=== PATIENT | female | born 1985 ===

== ENCOUNTER 2018-01-27 13:19 | Inpatient (IN) | payer OTHER ==
[~2018-01-27] VITALS: Ht 160 cm; Wt 65.3 kg
[~2018-01-27 13:19] MED LIST: DOLOGEN CAPLET1 EACH PO
[2018-01-27] MEDS ORDERED: XARELTO15 MG (13:46)
== END 2018-02-03 18:57 | DRG 176 ==
LOC: ER 13:19 → MEDI 18:01 → SEC-K 18:01 → MEDI 18:49
PROC: 4A033R1 Measurement of Arterial Saturation, Peripheral, Percutaneous Approach (ICD-10-PCS; principal; 2018-01-27)
PROC: BW24YZZ Computerized Tomography (CT Scan) of Chest and Abdomen using Other Contrast (ICD-10-PCS; 2018-01-27)
PROC: B246ZZZ Ultrasonography of Right and Left Heart (ICD-10-PCS; 2018-01-28)
PROC: 4A12X4Z Monitoring of Cardiac Electrical Activity, External Approach (ICD-10-PCS; 2018-01-28)
DX: I26.99 Other pulmonary embolism without acute cor pulmonale (principal); I82.411 Acute embolism and thrombosis of right femoral vein; I82.431 Acute embolism and thrombosis of right popliteal vein; D50.0 Iron deficiency anemia secondary to blood loss (chronic)

== ENCOUNTER 2018-11-23 19:14 | Emergency (ER) | payer OTHER ==
[~2018-11-23] VITALS: Ht 160 cm; Wt 64.4 kg
[~2018-11-23 19:14] MED LIST changes: +XARELTO15 MG
== END 2018-11-24 09:59 | disposition home or self-care (01) ==
LOC: ER 19:14
DX: R07.89 Other chest pain (principal); M79.661 Pain in right lower leg

== ENCOUNTER 2021-07-14 12:38 | Emergency (ER) | payer OTHER ==
[~2021-07-14] VITALS: Ht 160 cm; Wt 67.6 kg
[2021-07-14] MEDS ORDERED: NORFLEX100MG PO (18:06)
[2021-07-14] MEDS ORDERED: MEDROLPACK PO (18:06)
[2021-07-14] MEDS ORDERED: ACETAMINOPHEN650 M2 PO (18:06)
== END 2021-07-14 19:30 | disposition home or self-care (01) ==
LOC: ER 12:38
DX: M94.0 Chondrocostal junction syndrome [Tietze] (principal); R06.02 Shortness of breath; S29.011A Strain of muscle and tendon of front wall of thorax, initial encounter; X58.XXXA Exposure to other specified factors, initial encounter; Y93.89 Activity, other specified; Y92.89 Other specified places as the place of occurrence of the external cause; Y99.8 Other external cause status; Z03.818 Encounter for observation for suspected exposure to other biological agents ruled out

== ENCOUNTER 2022-05-03 12:08 | Emergency (ER) | payer OTHER ==
[~2022-05-03] VITALS: Ht 160 cm; Wt 67.1 kg
[~2022-05-03 12:08] MED LIST changes: +ACETAMINOPHEN650 M2 PO; +MEDROLPACK PO; +NORFLEX100MG PO
[2022-05-03] MEDS ORDERED: IRON236 MG (13:00)
== END 2022-05-03 17:16 | disposition home or self-care (01) ==
LOC: ER 12:08
DX: D64.9 Anemia, unspecified (principal); Z88.8 Allergy status to other drugs, medicaments and biological substances; Z86.711 Personal history of pulmonary embolism; Z20.822 Contact with and (suspected) exposure to COVID-19

== ENCOUNTER 2022-07-01 18:15 | Emergency (ER) | payer OTHER ==
[~2022-07-01] VITALS: Ht 160 cm; Wt 67.1 kg
[~2022-07-01 18:15] MED LIST changes: +IRON236 MG
== END 2022-07-02 00:20 | disposition home or self-care (01) ==
LOC: ER 18:15
DX: M54.32 Sciatica, left side (principal); M54.50 Low back pain, unspecified; Z88.8 Allergy status to other drugs, medicaments and biological substances